=== PATIENT | female | born 1945 | race Caucasian/White ===

== ENCOUNTER 2017-11-15 09:53 | Observation (INO) ==
[2017-11-15] MEDS ORDERED: Ampicillin/Sulbactam 1,500 MG in 0.9 % Sodium Chloride Mini Bag 100 ML IVPB ONE (10:22)
[2017-11-15] MEDS ORDERED: Acetaminophen 325 MG TABLET PO ONE (10:23)
--- NOTE | 2017-11-15 10:28 | Emergency Department Note ---
Disposition Clinical Impression: Cellulitis Qualifiers: Site of cellulitis: extremity Site of cellulitis of extremity: lower extremity Laterality: left Qualified Code(s): L03.116 - Cellulitis of left lower limb Disposition: Admitted As Inpatient Condition: Fair Referrals: Iveth Jones CNP [Primary Care Provider] - Forms: ED Satisfaction Letter Extremity Problem HPI - General Chief complaint: ED Extremity Problem,Nontraumatic Stated complaint: Left leg cellulitis,Hypertension/HR Time Seen by Provider: 11/15/17 10:12 Nursing Notes Reviewed: Yes Vital Signs Reviewed: Yes - History of Present Illness HPI Narrative: Chief complaint is possible cellulitis versus DVT left lower extremity History: This is a 72-year-old female she comes in with 1 day of pain and swelling and redness to her left lower extremity. She denies any fevers she is diabetic, she has been on prednisone due to sciatica in her right leg. She saw her primary care physician today and they are worried she could have a DVT or cellulitis. She denies either in the past denies any chest pain or shortness of breath. She denies a injury to the area. No new areas of trauma to that area. She is not on any antibiotics this time. Past medical history reviewed in nurse's notes reviewed, allergies reviewed, med list reviewed. Pain Scale: 5 - Related Data Home Medications Medication Instructions Recorded Confirmed Aspirin [Adult Aspirin] 81 mg PO DAILY 11/15/17 11/15/17 Cholecalciferol (D-3) [Vitamin D] 2,000 unit PO DAILY 11/15/17 11/15/17 Cyclobenzaprine HCl 5 mg PO BID PRN 11/15/17 11/15/17 hydroCHLOROthiazide 25 mg PO DAILY 11/15/17 11/15/17 [Hydrochlorothiazide] metFORMIN [Glucophage] 500 mg PO BIDWM 11/15/17 11/15/17 Allergies Allergy/AdvReac Type Severity Reaction Status Date / Time lisinopril AdvReac Cough Verified 11/15/17 10:35 meloxicam AdvReac Gastrointestinal Verified 11/15/17 10:35 Upset metoprolol AdvReac Headache Verified 11/15/17 10:35 steri strips AdvReac Rash Uncoded 06/13/15 16:21 Review of Systems: Positive for redness pain and swelling left lower extremity All systems ED: reviewed and negative except as stated. Past Medical History - Past Medical History Medical history: Reports: arthritis, fibromyalgia, hypertension, osteoporosis, other Surgical history: Reports: breast surgery, cataract, hysterectomy, orthopedic, other Psychiatric history: Reports: no psych history - Social History Smoking Status: Never smoker Smokeless Tobacco Status: No Alcohol use: Reports: none Drug use: Reports: none Physical Exam Temperature is 97.6, pulse is 1:15, respirations 16, BP 134/91, pulse ox by 6% on room air, weighs 87 kg. Gen. is alert and nontoxic in appearance HEENT is normocephalic PERRL extremities are moist neck is supple no nodes anterior posterior chain Cardia vascular is regular rate and rhythm without rubs or JVD initial heart rate was 1:15 at triage here she is 98 Respiratory: Regular rate and rhythm without rubs or JVD Chest wall free of trauma and tenderness Abdomen is soft nonsurgical good bowel sounds no masses extremities are present 4 good distal pulses Refill is brisk from the left ankle up to mid calf she has redness and warmth it is tender to touch. She does have local swelling and lower calf tenderness. None in the knee of the thigh or the foot. Dermatologic skin is warm and dry except for the on the legacy no other signs of cellulitis trauma or infection. Neurologic no flu deficits cranial nerve motor sensory exam. Course Vital Signs Temperature 97.6 F 11/15/17 09:58 Pulse Rate 115 11/15/17 09:58 Respiratory Rate 16 11/15/17 09:58 Blood Pressure 134/91 11/15/17 09:58 O2 Sat by Pulse Oximetry 96 11/15/17 09:58 Temperature 97.6 F 11/15/17 10:32 Pulse Rate 115 11/15/17 10:32 Respiratory Rate 16 11/15/17 10:32 Blood Pressure 134/91 11/15/17 10:32 O2 Sat by Pulse Oximetry 96 11/15/17 10:32 Oxygen Delivery Oxygen Delivery Room Air Extremity Problem, Nontraumati - MDM Narrative Medical decision making narrative: 1028 hrs.: This is most likely a cellulitis and started on some antibiotics check a DVT study labs and then reassess. She may be able to go home depending on the way her labs look and how she responds to treatment. She is in agreement with this plan. 1115 hrs.: Patient in EKG performed, shows a sinus tachycardia at a rate of 107 , converses 101, QTC is 332, compared this with an EKG that she had done in June 2015 shows no changes except for rate. 1142 hrs.: Patient has a leukocytosis which is provided infection but she is also on steroids. She is given IV antibiotics and started waiting on DVT study then most likely admission. 1205 hrs.: DVT study is negative. We will bring her in for cellulitis and IV antibiotics. She is in agreement with plan. Dinora Pugh Female : 1945 [facility]# [id number] 11/15/17 11:58 - Vascular Preliminary by Morris Mcdaniels Acct Num: [id number] : 1945 Patient Age: 72 Left leg venous doppler - No DVT Initialized on 11/15/17 11:58 - END OF NOTE 1214 hrs.: Patient is updated on her status, waiting on hospitalist for admission. She is in agreement with this plan. She has her Unasyn anabolic infusing at this time. 1250 hrs.: Hospice as accepted patient for admission, patient is updated on plan in agreement. Waiting on bed. - Lab Data Result diagrams: 11/15/17 10:49 11/15/17 10:49 Lab Results 11/15/17 11/15/17 11/15/17 Range/Units 10:49 10:49 11:15 WBC 21.4 H (4.3-11.1) K/mcL RBC 4.97 (3.82-4.97) M/mcL Hgb 15.3 (11.5-15.4) g/dL Hct 43.9 (35.3-44.9) % MCV 88.3 (83.0-100.0) fL MCH 30.8 (28.0-33.3) pg MCHC 34.9 (31.6-35.5) g/dL RDW 14.5 (11.5-14.5) % Plt Count 254 (140-400) K/mcL MPV 9.2 L (9.4-12.4) fL Immature Gran % 0.5 (0-4) % Seg Neutrophils % 91.7 % Lymphocytes % 4.3 % Monocytes % 3.3 % Eosinophils % 0.0 % Basophils % 0.2 % Neutrophils # 19.7 H (1.6-8.9) K/mcL Lymphocytes # 0.9 (0.6-4.6) K/mcL Monocytes # 0.7 (0.0-1.3) K/mcL Eosinophils # 0.0 (0.0-0.6) K/mcL Basophils # 0.0 (0.0-0.2) K/mcL Sodium 137 (136-145) mEq/L Potassium 3.8 (3.5-5.1) mEq/L Chloride 100 (98-107) mEq/L Carbon Dioxide 28 (23-29) mEq/L BUN 13 (8-23) mg/dL Creatinine 0.62 (0.60-1.20) mg/dL Est GFR ( Amer) > 60 (> 60) Est GFR (Non-Af Amer) > 60 (> 60) BUN/Creatinine Ratio 21 (6-26) Glucose 193 H (70-105) mg/dL Calculated Osmolality 289 (280-300) Calcium 9.6 (8.6-10.3) mg/dL Urine Color Dark Yellow (Yellow) Urine Clarity Clear (Clear) Urine pH 6.0 (5.0-8.0) pH Units Ur Specific Marion 1.029 H (1.010-1.025) Urine Protein 30 H (Neg-Trace) mg/dL Urine Glucose (UA) 250 H (Normal) mg/dL Urine Ketones 15 H (Negative) mg/dL Urine Blood Negative (Negative) Urine Nitrite Negative (Negative) Urine Bilirubin Small H (Negative) Urine Urobilinogen Normal (Normal) mg/dL Ur Leukocyte Esterase Moderate H (Negative) Urine Microscopic RBC 5-15 H (0-3) per hpf Urine Microscopic WBC 15-30 H (0-3) per hpf Ur Squamous Epith Cells Many H (None-Few) per lpf Urine Bacteria None Seen (None-Few) per hpf Hyaline Casts Few (None-Few) per lpf Ur Culture Indicated? NO. A (NO)
[2017-11-15 11:00] LABS: Basophils % 0.2 %; Hematocrit 43.9 % (35.3-44.9); Hemoglobin 15.3 g/dL (11.5-15.4); Immature Granulocytes % 0.5 % (0-4); Lymphocytes # 0.9 K/mcL (0.6-4.6); Lymphocytes % 4.3 %; Mean Corpuscular HGB Conc 34.9 g/dL (31.6-35.5); Mean Corpuscular Hemoglobin 30.8 pg (28.0-33.3); Mean Corpuscular Volume 88.3 fL (83.0-100.0); Mean Platelet Volume 9.2 fL (9.4-12.4); Monocytes # 0.7 K/mcL (0.0-1.3); Monocytes % 3.3 %; Neutrophils # 19.7 K/mcL (1.6-8.9); Platelet Count 254 K/mcL (140-400); Red Blood Count 4.97 M/mcL (3.82-4.97); Red Cell Distribution Width 14.5 % (11.5-14.5); Segmented Neutrophils % 91.7 %
[2017-11-15 11:23] LABS: BUN/Creatinine Ratio 21 (6-26); Blood Urea Nitrogen 13 mg/dL (8-23); Calcium 9.6 mg/dL (8.6-10.3); Carbon Dioxide 28 mEq/L (23-29); Chloride 100 mEq/L (98-107); Glucose 193 mg/dL (70-105); Osmolality,Calculated 289 (280-300); Potassium 3.8 mEq/L (3.5-5.1); Sodium 137 mEq/L (136-145); eGFR For Non-African Americans > 60 (> 60)
[2017-11-15 11:34] LABS: Bilirubin,Urine Small (Negative); Blood,Urine Negative (Negative); Clarity,Urine Clear (Clear); Color,Urine Dark Yellow (Yellow); Glucose,Urine (UA) 250 mg/dL (Normal); Ketones,Urine 15 mg/dL (Negative); Leukocyte Esterase,Urine Moderate (Negative); Nitrite,Urine Negative (Negative); Protein,Urine 30 mg/dL (Neg-Trace); Specific Gravity,Urine 1.029 (1.010-1.025); Urobilinogen,Urine Normal (Normal)
[2017-11-15 11:36] LABS: Bacteria,Urine None Seen per hpf (None-Few); Hyaline Casts,Urine Few per lpf (None-Few); Squamous Epithelial Cell,Urine Many per lpf (None-Few); WBC,Urine 15-30 per hpf (0-3)
[2017-11-15] MEDS ORDERED: *HR* Heparin 5,000 UNIT/ML VIAL IVP PRN ×2 (13:52)
[2017-11-15] MEDS ORDERED: *HR* Heparin 5,000 UNIT/ML VIAL IVP ONE (13:52)
[2017-11-15] MEDS ORDERED: Heparin 25,000 UNIT/500 ML D5W 25,000 UNIT/500 ML BAG IVC SCH (14:00)
[2017-11-15 14:31] LABS: Prothrombin Time 11.8 Seconds (9.4-12.1)
[2017-11-15 14:34] LABS: Activated Partial Thrombo Time 28.2 Seconds (26.0-36.0)
[2017-11-15] MEDS ORDERED: Naloxone 0.4 MG/ML INJ IVP PRN ×2 (14:37→18:05)
[2017-11-15] MEDS ORDERED: D5% in Water 1,000 ML IVC PRN (18:05)
[2017-11-15] MEDS ORDERED: *HR* Dextrose 50 % in Water (Syg) 50 ML SYRINGE IVP PRN (18:07)
[2017-11-15] MEDS ORDERED: Dextrose Gel 15 GM/37.5 ML TUBE PO PRN ×2 (18:07)
--- NOTE | 2017-11-15 18:13 | Internal Med History&Physical ---
Date of Encounter: 11/15/17 Time of Encounter: 18:09 Internal Medicine - H&P: HPI Chief complaint: LLE erythema, swelling Admitted From: Home Plans for Post Hospital Care: Home History of present illness: Ms. Pugh is a 72 year old female with a PMH of arthritis, DM, fibromyalgia, HTN, osteoarthritis who presents to [facility] with a cc of LLE erythema and swelling. She was seen at her PCP office today and noticed to have the swelling and redness. She has a h/o DM and her pcp was concerned for cellulitis. She krishnan not have any obvious sources of infection and no wounds are present. She reports that over the last 72 hours she has felt fatigue, has had fevers and night sweats. Additionally she is also reporting some mild pain. W/u in ED included LLE extremity Doppler ultrasound which was found to be negative for DVT. She was noted to have leukocytosis with WBC of 21.4. She denies any prior h/o MRSA or staph infections. She is being admitted for IV antibiotics for cellulitis of left upper extremity. Past Med Surg Social Fam HX - Past Medical History Medical history: arthritis, diabetes, fibromyalgia, hypertension, osteoporosis Additional medical history: FIRBROCYSTIC DISEASE BREASTS Psychiatric history: no psych history - Past Surgical History Surgical History: breast surgery, cataract, hysterectomy, orthopedic, other Additional surgical history: Left breast cyst removed, Right ankle pinning- removal of hardware a year later - Social History Smoking Status: Never smoker Smokeless Tobacco Status: No Alcohol use: none Drug use: none - Family History Father Adopted: No Family Member Ethnicity: Non- Living Status: Hx Family Cardiac Disorders: Yes (CVA AT AGE 87 - DEFICIT RIGHT VISUAL FIELD) Hx Family Respiratory Disorders: No Hx Family Endocrine Disorder: Yes (DIABETES) Hx Family Neuromuscular Disorders: No Hx Family Neurologic Disorders: No Hx Family HEENT Disorders: No Hx Family Autoimmune Disorders: No Sister Family Member Ethnicity: Non- Living Status: Still Living Hx Family Cardiac Disorders: Yes (HTN) Hx Family Respiratory Disorders: No Hx Family Cancer: Yes (UTERINE CANCER 2013 HYST & ENDOMETRIAL CANCER 2016) Hx Family GI Disorders: No Hx Family Endocrine Disorder: Yes (DIABETES) Hx Family Neuromuscular Disorders: No Hx Family Neurologic Disorders: No Hx Family HEENT Disorders: No Hx Family Autoimmune Disorders: No Internal Medicine - H&P: Meds Aspirin [Adult Aspirin] 81 mg PO DAILY 11/15/17 [History] Cholecalciferol (D-3) [Vitamin D] 2,000 unit PO DAILY 11/15/17 [History] Cyclobenzaprine HCl 5 mg PO BID PRN 11/15/17 [History] hydroCHLOROthiazide [Hydrochlorothiazide] 25 mg PO DAILY 11/15/17 [History] metFORMIN [Glucophage] 500 mg PO BIDWM 11/15/17 [History] 3 Allergy/AdvReac Type Severity Reaction Status Date / Time lisinopril AdvReac Cough Verified 11/15/17 10:35 meloxicam AdvReac Gastrointestinal Verified 11/15/17 10:35 Upset metoprolol AdvReac Headache Verified 11/15/17 10:35 steri strips AdvReac Rash Uncoded 06/13/15 16:21 All Systems PM: A 10-system review of systems was performed and is negative for pertinent findings except as documented above in the HPI. Review of systems: REVIEW OF SYSTEMS GENERAL: Negative for any nausea, vomiting, chills, or weight loss. Positive for night sweats and subjective fevers NEUROLOGIC: Negative for any blurry vision, blind spots, double vision, facial asymmetry, dysphagia, dysarthria, hemiparesis, hemisensory deficits, vertigo, ataxia. HEENT: Negative for any head trauma, neck trauma, neck stiffness, photophobia, phonophobia, sinusitis, rhinitis. CARDIAC: Negative for any chest pain, dyspnea on exertion, paroxysmal nocturnal dyspnea, peripheral edema. PULMONARY: Negative for any shortness of breath, wheezing, COPD, or TB exposure. GASTROINTESTINAL: Negative for any abdominal pain, nausea, vomiting, bright red blood per rectum, melena. GENITOURINARY: Negative for any dysuria, hematuria, incontinence. INTEGUMENTARY: Positive for left lower extremity erythema, swelling and mild tenderness RHEUMATOLOGIC: Negative for any joint pains, photosensitive rashes, history of vasculitis or kidney problems. HEMATOLOGIC: Negative for any abnormal bruising, frequent infections or bleeding. - Constitutional Vitals: Temp Pulse Resp BP Pulse Ox 99.2 F 108 20 120/75 95 11/15/17 15:25 11/15/17 15:25 11/15/17 15:25 11/15/17 15:25 11/15/17 15:25 Exam: . - Eye Eye exam: Present: PERRL - Neck Neck exam general surgery: Absent: lymphadenopathy - Respiratory Respiratory exam: Present: CTAB. Absent: accessory muscle use, rales, rhonchi, wheezes - Cardiovascular Cardiovascular exam: Present: RRR, +S1, +S2. Absent: diastolic murmur, gallop, rubs, systolic murmur - GI/Abdominal GI/Abdominal exam: Absent: distended, tenderness - Extremities Exam Extremities exam: Present: normal capillary refill, tenderness, warm, radial pulses palpable and symmetrical. Absent: calf tenderness, cyanotic, joint swelling, normal inspection, pedal edema - Expanded Lower Extremities Exam Lower Leg exam: Present: erythema (lle), full ROM, swelling, tenderness (LLE). Absent: abrasion, ecchymosis, laceration, normal inspection - Neurological Exam Neurological exam: Present: CN II-XII intact, oriented X3, no focal deficits. Absent: pronater drift, facial droop, speech deficit - Skin Skin exam: Present: dry, intact Internal Med - H&P Results - Labs CBC & Chem 7: 11/15/17 10:49 11/15/17 10:49 - Assessment and plan (1) Cellulitis Current Visit: Yes Status: Acute Assessment and plan: cellulitis of LLE venous doppler negative for DVT no prior MRSA hx, no staph hx continue ampicillin daily labs Qualifiers: Site of cellulitis: extremity Site of cellulitis of extremity: lower extremity Laterality: left Qualified Code(s): L03.116 - Cellulitis of left lower limb (2) Obesity (BMI 30-39.9) Current Visit: No Status: Chronic Assessment and plan: discussed lifestyle modifications (3) Leukocytosis Current Visit: No Status: Acute Assessment and plan: in the setting of cellulitis Qualifiers: Leukocytosis type: unspecified Qualified Code(s): D72.829 - Elevated white blood cell count, unspecified (4) SIRS (systemic inflammatory response syndrome) Current Visit: Yes Status: Acute Assessment and plan: Positive for 3 SIRS criteria; tachycardia, tachypnea, and leukocytosis (5) Tachycardia Current Visit: Yes Status: Acute Assessment and plan: CONCERNS FOR SEPSIS SEE ABOVE - Time Spent With Patient Total time spent is greater than 50% in coordination of care (as documented) at patient's floor/unit and/or counseling patient: less than 15 minutes
[2017-11-15] MEDS: Ampicillin/Sulbactam 1,500 MG in 0.9 % Sodium Chloride Mini Bag 100 ML IVPB SCH (22:15)
[2017-11-16] MEDS: Insulin LISPRO 300 UNITS/3 ML VIAL SQ SCH ×5 (01:18→20:50)
[2017-11-16 01:25] LABS: Hematocrit 38.2 % (35.3-44.9); Mean Corpuscular HGB Conc 33.2 g/dL (31.6-35.5); Mean Corpuscular Hemoglobin 29.8 pg (28.0-33.3); Mean Corpuscular Volume 89.7 fL (83.0-100.0); Mean Platelet Volume 9.5 fL (9.4-12.4); Platelet Count 246 K/mcL (140-400); Red Blood Count 4.26 M/mcL (3.82-4.97)
[2017-11-16 01:26] LABS: Hemoglobin 12.7 g/dL (11.5-15.4)
[2017-11-16 01:44] LABS: BUN/Creatinine Ratio 22 (6-26); Blood Urea Nitrogen 16 mg/dL (8-23); Calcium 8.9 mg/dL (8.6-10.3); Carbon Dioxide 28 mEq/L (23-29); Chloride 104 mEq/L (98-107); Glucose 226 mg/dL (70-105); Osmolality,Calculated 294 (280-300); Potassium 3.7 mEq/L (3.5-5.1); Sodium 138 mEq/L (136-145); eGFR For Non-African Americans > 60 (> 60)
[2017-11-16] MEDS: Ampicillin/Sulbactam 1,500 MG in 0.9 % Sodium Chloride Mini Bag 100 ML IVPB SCH ×4 (04:19→20:52)
--- NOTE | 2017-11-16 06:15 | Electrocardiograph Report ---
[place] [email or web address] Test Date: 2017-11-15 Pat Name: Dinora Pugh Department: EXAM6 Room: [facility] Gender: F Cadd Instructor: : 1945 Requested By: Rodrigo Reid Order Number: [id number] Reading MD: Sandip Crain Measurements Intervals [place] Rate: 107 P: 40 PA: 145 QRS: 32 QRSD: 101 T: 10 QT: 332 QTc: 443 Interpretive Statements Sinus tachycardia Electronically Signed On 11-16-2017 6:13:32 EDT by Sandip Crain
[2017-11-16] MEDS: *HR* Enoxaparin 40 MG/0.4 ML SYRINGE SQ SCH (08:29)
[2017-11-16] MEDS: Cholecalciferol (D-3) 1,000 UNIT TABLET PO SCH (08:36)
[2017-11-16] MEDS: hydroCHLOROthiazide 25 MG TABLET PO SCH (08:36)
[2017-11-16] MEDS: Aspirin Enteric Coated 81 MG Tablet PO SCH (08:36)
--- NOTE | 2017-11-16 14:56 | Internal Med Progress Note ---
Hospitalist Progress Note - Encounter Date of Encounter: 11/16/17 Time of Encounter: 14:50 - Subjective Interval History: no acute changes overnight - Exam Vitals: Temp Pulse Resp BP Pulse Ox 99.0 F 96 18 126/82 94 11/16/17 10:44 11/16/17 10:44 11/16/17 10:44 11/16/17 10:44 11/16/17 10:44 Exam: PHYSICAL EXAMINATION: LUNGS: Clear to auscultation. HEART: Regular rate and rhythm without murmur. ABDOMEN: Soft, nontender, and nondistended. Positive bowel sounds. No hepatosplenomegaly was noted. EXTREMITIES: Left lower extremity erythema and swelling and tenderness. - Assessment and Plan (1) Cellulitis Current Visit: Yes Status: Acute Assessment and Plan: cellulitis of LLE--11/16; improving today, swelling noted when limb is dependent, improves with elevation venous doppler negative for DVT no prior MRSA hx, no staph hx continue unasyn daily labs (2) Obesity (BMI 30-39.9) Current Visit: No Status: Chronic Assessment and Plan: discussed lifestyle modifications (3) Leukocytosis Current Visit: No Status: Acute Assessment and Plan: in the setting of cellulitis; improving WBC 11.6 (4) SIRS (systemic inflammatory response syndrome) Current Visit: Yes Status: Resolved (5) Tachycardia Current Visit: Yes Status: Resolved - Time Spent with Patient Total time spent is greater than 50% in coordination of care (as documented) at patient's floor/unit and/or counseling patient: less than 15 minutes Plan of Care Discussed with: patient Internal Medicine: Result - Labs CBC & Chem 7: 11/16/17 00:56 11/16/17 00:56 Labs: Short CBC 11/16/17 Range/Units 00:56 WBC 11.6 H (4.3-11.1) K/mcL Hgb 12.7 D (11.5-15.4) g/dL Hct 38.2 (35.3-44.9) % Plt Count 246 (140-400) K/mcL BMP 11/16/17 00:56 Sodium 138 Potassium 3.7 Chloride 104 Carbon Dioxide 28 BUN 16 Creatinine 0.72 Glucose 226 H Calcium 8.9 - ABG Interpretation ABG results: PT/INR, D-dimer PT 11.8 Seconds (9.4-12.1) 11/15/17 14:09 Consult Discharge Plan - Plan Referrals: Iveth Jones, [employer] [Primary Care Provider] - (1) Cellulitis Qualifiers: Site of cellulitis: extremity Site of cellulitis of extremity: lower extremity Laterality: left Qualified Code(s): L03.116 - Cellulitis of left lower limb (3) Leukocytosis Qualifiers: Leukocytosis type: unspecified Qualified Code(s): D72.829 - Elevated white blood cell count, unspecified
[2017-11-17] MEDS: Ampicillin/Sulbactam 1,500 MG in 0.9 % Sodium Chloride Mini Bag 100 ML IVPB SCH ×2 (02:56→10:10)
[2017-11-17] MEDS: hydroCHLOROthiazide 25 MG TABLET PO SCH (08:20)
[2017-11-17] MEDS: Cholecalciferol (D-3) 1,000 UNIT TABLET PO SCH (08:20)
[2017-11-17] MEDS: Insulin LISPRO 300 UNITS/3 ML VIAL SQ SCH ×2 (08:20→12:36)
[2017-11-17] MEDS: *HR* Enoxaparin 40 MG/0.4 ML SYRINGE SQ SCH (08:20)
[2017-11-17] MEDS: Aspirin Enteric Coated 81 MG Tablet PO SCH (08:20)
[2017-11-17] MEDS ORDERED: Acetaminophen 325 MG TABLET PO PRN (09:29)
[2017-11-17 10:45] LABS: Basophils % 0.3 %; Eosinophils # 0.1 K/mcL (0.0-0.6); Eosinophils % 0.7 %; Hematocrit 43.6 % (35.3-44.9); Hemoglobin 14.6 g/dL (11.5-15.4); Immature Granulocytes % 0.3 % (0-4); Lymphocytes # 1.2 K/mcL (0.6-4.6); Lymphocytes % 11.9 %; Mean Corpuscular HGB Conc 33.5 g/dL (31.6-35.5); Mean Corpuscular Hemoglobin 30.4 pg (28.0-33.3); Mean Corpuscular Volume 90.6 fL (83.0-100.0); Mean Platelet Volume 9.7 fL (9.4-12.4); Monocytes # 0.4 K/mcL (0.0-1.3); Monocytes % 4.2 %; Neutrophils # 8.1 K/mcL (1.6-8.9); Platelet Count 286 K/mcL (140-400); Red Blood Count 4.81 M/mcL (3.82-4.97); Red Cell Distribution Width 14.8 % (11.5-14.5); Segmented Neutrophils % 82.6 %
[2017-11-17 10:59] LABS: BUN/Creatinine Ratio 19 (6-26); Blood Urea Nitrogen 14 mg/dL (8-23); Calcium 9.1 mg/dL (8.6-10.3); Carbon Dioxide 27 mEq/L (23-29); Chloride 102 mEq/L (98-107); Glucose 291 mg/dL (70-105); Osmolality,Calculated 293 (280-300); Potassium 3.8 mEq/L (3.5-5.1); Sodium 136 mEq/L (136-145); eGFR For Non-African Americans > 60 (> 60)
--- NOTE | 2017-11-17 13:23 | Discharge Summary ---
Date of Encounter: 11/17/17 Time of Encounter: 13:20 - Discharge Diagnosis (1) Cellulitis Priority: Primary Status: Acute Assessment and Plan: cellulitis of LLE--11/17; erythema resolving today, swelling improving venous doppler negative for DVT no prior MRSA hx, no staph hx Leukocytosis has resolved Discharge with Keflex 5 days Qualifiers: Site of cellulitis: extremity Site of cellulitis of extremity: lower extremity Laterality: left Qualified Code(s): L03.116 - Cellulitis of left lower limb (2) Obesity (BMI 30-39.9) Priority: Secondary Status: Chronic Assessment and Plan: discussed lifestyle modifications (3) Leukocytosis Priority: Secondary Status: Resolved Qualifiers: Leukocytosis type: unspecified Qualified Code(s): D72.829 - Elevated white blood cell count, unspecified (4) SIRS (systemic inflammatory response syndrome) Priority: Secondary Status: Resolved (5) Tachycardia Priority: Secondary Status: Resolved Hospital course: Ms. Pugh is a 72 year old female with left lower extremity swelling, erythema and discomfort. Concerns for DVT versus cellulitis. Venous Doppler of her extremity obtained and found to be negative for DVT. Treated with Unasyn IV for cellulitis. Initially had 3 positive SIRS criteria with leukocytosis, tachypnea and tachycardia. As such she was admitted inpatient to her cellulitis. Leukocytosis has resolved. No longer tachycardic and no longer tachypneic and continuing to improve daily. Cellulitis continuing to improve as well. Patient is instructed to follow-up with PCP within 1 week of discharge. Additionally, she will be discharged with a 5 day course of Keflex. She has been instructed to complete the entire course. Patient verbalized understanding denies any further questions. Discharge discussed with: patient, nurse - Time Spent with Patient Total time spent providing and/or coordinating discharge services: Less than 30 minutes - Discharge Medications Prescriptions: cephALEXin [Keflex] 500 mg PO BID 5 Days #10 capsule Home Medications: Aspirin [Adult Aspirin] 81 mg PO DAILY 11/15/17 [History] Cholecalciferol (D-3) [Vitamin D] 2,000 unit PO DAILY 11/15/17 [History] Cyclobenzaprine HCl 5 mg PO BID PRN 11/15/17 [History] hydroCHLOROthiazide [Hydrochlorothiazide] 25 mg PO DAILY 11/15/17 [History] metFORMIN [Glucophage] 500 mg PO BIDWM 11/15/17 [History] cephALEXin [Keflex] 500 mg PO BID 5 Days #10 capsule 11/17/17 [Rx] Allergies/Adverse Reactions: 3 Allergy/AdvReac Type Severity Reaction Status Date / Time lisinopril AdvReac Cough Verified 11/15/17 10:35 meloxicam AdvReac Gastrointestinal Verified 11/15/17 10:35 Upset metoprolol AdvReac Headache Verified 11/15/17 10:35 steri strips AdvReac Rash Uncoded 06/13/15 16:21 Date of admission: 11/15/17 12:58 Primary care physician: Iveth Jones CNP Discharging clinician: Brent Cobos Anticipated date of discharge: 11/17/17 - Constitutional Vitals: Temp Pulse Resp BP Pulse Ox 97.8 F 89 16 132/82 97 11/17/17 11:46 11/17/17 11:46 11/17/17 11:46 11/17/17 11:46 11/17/17 11:46 Exam: PHYSICAL EXAMINATION: LUNGS: Clear to auscultation. HEART: Regular rate and rhythm without murmur. ABDOMEN: Soft, nontender, and nondistended. Positive bowel sounds. No hepatosplenomegaly was noted. EXTREMITIES: Left lower extremity erythema and swelling and tenderness, cellulitis resolving. - Patient Status Disposition: Home, Self-Care Condition: Fair Overall status at discharge: patient is back to baseline - Discharge Instructions Instructions: Cellulitis (DC) Follow Up With: Iveth Jones CNP [Primary Care Provider] - - Diet and Activity Activity: increase activity as tolerated, resume usual activities as tolerated Diet: advance to your usual diet
[2017-11-17 13:29] VITALS: BP 122/82
== END 2017-11-17 14:35 | disposition home or self-care (01) ==
LOC: 3NENU 09:53 → EMEROOARM 09:53 → 3NENU 13:36
PROVIDERS: ADMIT Internal Medicine; ATTEND Internal Medicine